=== PATIENT | female | born 1995 | race Caucasian/White ===

== ENCOUNTER 2017-06-27 09:44 | Emergency (ER) | payer OTHER ==
[2017-06-27] MEDS: SOD CHLORIDE 0.9% 500 ML IV (10:29)
[2017-06-27 10:54] LABS: ADD MAN DIFF? NO
[2017-06-27 11:03] LABS: WHITE BLOOD COUNT 11.8 10^3/ul (4.8-10.8)
[2017-06-27 11:03] LABS: BASOPHIL # 0.1 10^3/ul (0.0-0.1); BASOPHILS % 0.7 % (0.0-2.0); EOSINOPHILS # 0.3 10^3/ul (0.0-0.5); EOSINOPHILS % 2.8 % (0.0-7.0); LYMPHOCYTES # 2.3 10^3/ul (0.8-2.9); LYMPHOCYTES % 19.3 % (15.0-51.0); MEAN CORPUSCULAR HEMOGLOBIN 30.9 pg (29.0-33.0); MEAN CORPUSCULAR HGB CONC 35.3 g/dl (32.0-37.0); MEAN CORPUSCULAR VOLUME 87.6 fl (82.0-101.0); MEAN PLATELET VOLUME 11.2 fl (7.4-10.4); MONOCYTE # 0.9 10^3/ul (0.3-0.9); MONOCYTES % 7.3 % (0.0-11.0); NEUTROPHIL # 8.2 10^3/ul (1.6-7.5); NEUTROPHILS % 69.5 % (39.0-77.0); PLATELET COUNT 224 10^3/UL (140-415); RED BLOOD COUNT 3.88 10^6/ul (4.20-5.40); RED CELL DISTRIBUTION WIDTH 14.5 % (11.5-14.5)
[2017-06-27 11:08] LABS: ADD UMIC YES; UR ASCORBIC ACID 20 mg/dL (NEGATIVE); UR BILIRUBIN (Dip) NEGATIVE (NEGATIVE); UR BLOOD (Dip) NEGATIVE (NEGATIVE); UR CLARITY CLEAR (CLEAR); UR COLOR YELLOW (YELLOW); UR GLUCOSE (Dip) NEGATIVE (NEGATIVE); UR KETONES (Dip) NEGATIVE (NEGATIVE); UR LEUKOCYTE ESTERASE (Dip) 1+ Leu/ul (NEGATIVE); UR NITRITE (Dip) NEGATIVE (NEGATIVE); UR RBC 0 /HPF (0-5); UR SPECIFIC GRAVITY (Dip) 1.013 (1.003-1.030); UR SQUAMOUS EPITHELIAL CELL FEW /HPF (FEW); UR TOTAL PROTEIN (Dip) NEGATIVE (NEGATIVE); UR UROBILINOGEN (Dip) NEGATIVE (NEGATIVE); UR WBC 5 /HPF (0-5)
[2017-06-27 11:14] LABS: ANION GAP 16 (8-16); BLOOD UREA NITROGEN 7 mg/dl (7-20); CALCIUM 9.3 mg/dl (8.4-10.2); CARBON DIOXIDE 22 mmol/L (21-31); CHLORIDE 109 mmol/L (97-110); CREATININE 0.44 mg/dl (0.44-1.00); GLUCOSE 80 mg/dl (70-220); POTASSIUM 3.8 mmol/L (3.5-5.1); SODIUM 143 mmol/L (135-144)
== END 2017-06-27 12:22 | disposition home or self-care (01) ==
LOC: FTE 09:44
DX: O23.42 Unspecified infection of urinary tract in pregnancy, second trimester (principal); R10.2 Pelvic and perineal pain; Z3A.21 21 weeks gestation of pregnancy
CPT/HCPCS: 36415; 76805; 80048; 81001; 84702; 85025; 99285-25

== ENCOUNTER 2017-10-02 14:00 | Inpatient (IN) | payer OTHER ==
[2017-10-02 14:39] LABS: ADD UMIC NO; UR ASCORBIC ACID 40 mg/dL (NEGATIVE); UR BILIRUBIN (Dip) NEGATIVE (NEGATIVE); UR BLOOD (Dip) NEGATIVE (NEGATIVE); UR CLARITY CLEAR (CLEAR); UR COLOR YELLOW (YELLOW); UR GLUCOSE (Dip) NEGATIVE (NEGATIVE); UR KETONES (Dip) NEGATIVE (NEGATIVE); UR LEUKOCYTE ESTERASE (Dip) NEGATIVE Leu/ul (NEGATIVE); UR NITRITE (Dip) NEGATIVE (NEGATIVE); UR SPECIFIC GRAVITY (Dip) 1.023 (1.003-1.030); UR TOTAL PROTEIN (Dip) NEGATIVE (NEGATIVE); UR UROBILINOGEN (Dip) NEGATIVE (NEGATIVE)
[2017-10-02] MEDS: LACTATED RINGER'S 1,000 ML IV (18:58)
[2017-10-02 19:15] LABS: ADD MAN DIFF? NO
[2017-10-02 19:18] LABS: BASOPHIL # 0.1 10^3/ul (0.0-0.1); BASOPHILS % 0.6 % (0.0-2.0); EOSINOPHILS # 0.4 10^3/ul (0.0-0.5); EOSINOPHILS % 2.4 % (0.0-7.0); HEMATOCRIT 36.9 % (37.0-47.0); HEMOGLOBIN 12.6 g/dl (12.0-16.0); LYMPHOCYTES # 2.6 10^3/ul (0.8-2.9); LYMPHOCYTES % 15.9 % (15.0-51.0); MEAN CORPUSCULAR HEMOGLOBIN 31.5 pg (29.0-33.0); MEAN CORPUSCULAR HGB CONC 34.1 g/dl (32.0-37.0); MEAN CORPUSCULAR VOLUME 92.3 fl (82.0-101.0); MONOCYTE # 1.1 10^3/ul (0.3-0.9); MONOCYTES % 6.6 % (0.0-11.0); NEUTROPHIL # 11.7 10^3/ul (1.6-7.5); NEUTROPHILS % 72.7 % (39.0-77.0); PLATELET COUNT 224 10^3/UL (140-415); RED CELL DISTRIBUTION WIDTH 13.2 % (11.5-14.5)
[2017-10-02 19:18] LABS: WHITE BLOOD COUNT 16.1 10^3/ul (4.8-10.8)
[2017-10-02 19:40] LABS: ALANINE AMINOTRANSFERASE 21 IU/L (13-69); ALBUMIN 3.8 g/dl (3.3-4.9); ALBUMIN/GLOBULIN RATIO 1.05; ALKALINE PHOSPHATASE 223 IU/L (42-121); ANION GAP 12 (8-16); ASPARTATE AMINO TRANSFERASE 23 IU/L (15-46); BILIRUBIN,INDIRECT 0.2 mg/dl (0-1.1); BILIRUBIN,TOTAL 0.2 mg/dl (0.2-1.3); BLOOD UREA NITROGEN 8 mg/dl (7-20); CARBON DIOXIDE 20 mmol/L (21-31); CHLORIDE 112 mmol/L (97-110); CREATININE 0.49 mg/dl (0.44-1.00); GLUCOSE 78 mg/dl (70-220); POTASSIUM 3.7 mmol/L (3.5-5.1); SODIUM 140 mmol/L (135-144); TOTAL PROTEIN 7.4 g/dl (6.1-8.1)
[2017-10-02] MEDS: BETAMET NA PHOS/AC(6 MG/ML) 5ML INJ IM (19:48)
[2017-10-02 19:56] LABS: INR 0.91; PROTIME 12.3 Sec (11.9-14.9)
[2017-10-02 19:57] LABS: PARTIAL THROMBOPLASTIN TIME 25.3 Sec (25.0-35.0)
[2017-10-02] MEDS: MAGNESIUM SULFATE 4 GM/100 ML 100 ML IV (20:20)
[2017-10-02] MEDS: MAGNESIUM SULFATE 20 GM/500 ML 500 ML IV ×2 (20:20→20:56)
[2017-10-02 21:01] LABS: RAPID PLASMA REAGIN NONREACTIVE (NR)
[2017-10-03 01:03] LABS: MAGNESIUM 4.6 mg/dl (1.7-2.5)
[2017-10-03] MEDS ORDERED: ACETAMINOPHEN 325 MG TAB PO (02:30)
[2017-10-03] MEDS: LACTATED RINGER'S 1,000 ML IV ×3 (05:03→14:05)
[2017-10-03] MEDS: MAGNESIUM SULFATE 20 GM/500 ML 500 ML IV ×2 (05:10→14:08)
[2017-10-03 07:19] LABS: MAGNESIUM 5.3 mg/dl (1.7-2.5)
[2017-10-03 12:51] LABS: MAGNESIUM 5.6 mg/dl (1.7-2.5)
[2017-10-03 18:57] LABS: MAGNESIUM 5.7 mg/dl (1.7-2.5)
[2017-10-03] MEDS: BETAMET NA PHOS/AC(6 MG/ML) 5ML INJ IM (20:13)
[2017-10-04] MEDS: MAGNESIUM SULFATE 20 GM/500 ML 500 ML IV ×2 (00:40→11:13)
[2017-10-04 00:59] LABS: MAGNESIUM 5.5 mg/dl (1.7-2.5)
[2017-10-04] MEDS: LACTATED RINGER'S 1,000 ML IV ×2 (05:16→18:50)
[2017-10-04 07:32] LABS: MAGNESIUM 6.2 mg/dl (1.7-2.5)
[2017-10-04] MEDS ORDERED: NIFEdipine 10 MG CAP PO (18:00)
[2017-10-04] MEDS: NIFEdipine 10 MG CAP PO (20:07)
[2017-10-05] MEDS: NIFEdipine 10 MG CAP PO ×3 (00:12→11:51)
[2017-10-05] MEDS: LACTATED RINGER'S 1,000 ML IV (15:23)
== END 2017-10-05 16:40 | disposition home or self-care (01) | DRG 778 ==
LOC: OBT 14:00 → PP1 10-04 16:11 → L-D 14:00 → OBT 18:10 → L-D 18:10
DX: O60.03 Preterm labor without delivery, third trimester (principal); Z3A.36 36 weeks gestation of pregnancy
CPT/HCPCS: 76818; 80053; 81003; 83735; 85025; 85384; 85610; 85730; 86592; 87086

== ENCOUNTER 2017-10-14 22:37 | Inpatient (IN) | payer OTHER ==
[2017-10-14] MEDS ORDERED: LACTATED RINGER'S 1,000 ML IV (22:55)
[2017-10-14] MEDS ORDERED: CARBOPROST 250 MCG INJ IM (23:00)
[2017-10-14] MEDS ORDERED: OXYTOCIN 30 UNITS/LR 500 ML IV (23:00)
[2017-10-14] MEDS: LACTATED RINGER'S 1,000 ML IV* (23:20)
[2017-10-14] MEDS: AMPICILLIN 2 GM/NS (PMX) 100 ML IV (23:44)
[2017-10-15] MEDS: BUTORPHANOL 2 MG INJ IV (00:11)
[2017-10-15] MEDS ORDERED: BUTORPHANOL 2 MG INJ (00:11)
[2017-10-15 01:18] LABS: ADD MAN DIFF? NO
[2017-10-15 01:21] LABS: WHITE BLOOD COUNT 17.6 10^3/ul (4.8-10.8)
[2017-10-15 01:21] LABS: ABNORMAL IP MESSAGE 1; BASOPHIL # 0.1 10^3/ul (0.0-0.1); BASOPHILS % 0.6 % (0.0-2.0); EOSINOPHILS # 0.3 10^3/ul (0.0-0.5); EOSINOPHILS % 1.8 % (0.0-7.0); HEMATOCRIT 37.7 % (37.0-47.0); HEMOGLOBIN 12.3 g/dl (12.0-16.0); LYMPHOCYTES # 2.6 10^3/ul (0.8-2.9); LYMPHOCYTES % 14.8 % (15.0-51.0); MEAN CORPUSCULAR HGB CONC 32.6 g/dl (32.0-37.0); MEAN PLATELET VOLUME 12.6 fl (7.4-10.4); MONOCYTE # 1.6 10^3/ul (0.3-0.9); NEUTROPHIL # 12.5 10^3/ul (1.6-7.5); NEUTROPHILS % 70.9 % (39.0-77.0); NUCLEATED RED BLOOD CELLS% 0.1 /100WBC (0.0-0.0); PLATELET COUNT 239 10^3/UL (140-415); RED CELL DISTRIBUTION WIDTH 13.1 % (11.5-14.5)
[2017-10-15] MEDS: OXYTOCIN 30 UNITS/LR 500 ML IV ×3 (01:21→06:02)
[2017-10-15] MEDS: MISOPROSTOL 200 MCG TAB PR (01:21)
[2017-10-15] MEDS: METHYLERGONOVINE 0.2 MG INJ IM (01:22)
[2017-10-15] MEDS: LIDOCAINE 1% (MPF) 30 ML INJ INJ (01:24)
[2017-10-15 01:29] LABS: POSITIVE DIFF @See below
[2017-10-15 01:41] LABS: INR 0.82; PROTIME 11.4 Sec (11.9-14.9); PT RATIO 0.9
[2017-10-15] MEDS: IBUPROFEN 600 MG TAB PO ×4 (01:44→17:18)
[2017-10-15 02:10] LABS: HEPATITIS B SURFACE ANTIGEN NEGATIVE (NEGATIVE)
[2017-10-15] MEDS ORDERED: AMPICILLIN 1 GM/NS (PMX) 50 ML IV (03:00)
[2017-10-15] MEDS ORDERED: OXYTOCIN 30 UNITS/LR 500 ML IV (04:30)
[2017-10-15] MEDS ORDERED: DIBUCAINE 1% 30 GM OINT PR (04:30)
[2017-10-15] MEDS ORDERED: DIPHENHYDRAMINE 50 MG INJ IV (04:30)
[2017-10-15] MEDS ORDERED: MISOPROSTOL 200 MCG TAB PR (04:30)
[2017-10-15] MEDS ORDERED: ZOLPIDEM 5 MG TAB PO (04:30)
[2017-10-15] MEDS ORDERED: ONDANSETRON 4 MG INJ IV (04:30)
[2017-10-15] MEDS ORDERED: CARBOPROST 250 MCG INJ IM (04:30)
[2017-10-15] MEDS ORDERED: METHYLERGONOVINE 0.2 MG INJ IM (04:30)
[2017-10-15] MEDS ORDERED: ACETAMINOPHEN 325 MG TAB PO (04:30)
[2017-10-15] MEDS: DEXTROSE 5%-LR 1,000 ML IV ×3 (05:31→20:03)
[2017-10-15] MEDS: LACTATED RINGER'S 1,000 ML IV* ×3 (06:03→20:03)
[2017-10-15] MEDS: BENZOCAINE 20% 56 ML SPRAY TOP (11:50)
[2017-10-15] MEDS: WITCH HAZEL/GLYCERIN PAD PR (11:50)
[2017-10-15] MEDS: LANOLIN 7 GM TUBE TOP (11:57)
[2017-10-15 14:58] LABS: RAPID PLASMA REAGIN NONREACTIVE (NR)
[2017-10-16] MEDS: IBUPROFEN 600 MG TAB PO ×5 (00:29→23:27)
[2017-10-16] MEDS: LACTATED RINGER'S 1,000 ML IV* ×3 (04:03→20:03)
[2017-10-16] MEDS: DEXTROSE 5%-LR 1,000 ML IV ×3 (04:03→20:03)
[2017-10-16 07:15] LABS: ADD MAN DIFF? NO
[2017-10-16 07:20] LABS: WHITE BLOOD COUNT 16.8 10^3/ul (4.8-10.8)
[2017-10-16 07:20] LABS: BASOPHIL # 0.1 10^3/ul (0.0-0.1); BASOPHILS % 0.7 % (0.0-2.0); EOSINOPHILS # 0.4 10^3/ul (0.0-0.5); EOSINOPHILS % 2.1 % (0.0-7.0); HEMATOCRIT 30.7 % (37.0-47.0); HEMOGLOBIN 10.3 g/dl (12.0-16.0); LYMPHOCYTES # 3.2 10^3/ul (0.8-2.9); LYMPHOCYTES % 19.1 % (15.0-51.0); MEAN CORPUSCULAR HEMOGLOBIN 31.7 pg (29.0-33.0); MEAN CORPUSCULAR HGB CONC 33.6 g/dl (32.0-37.0); MEAN CORPUSCULAR VOLUME 94.5 fl (82.0-101.0); MEAN PLATELET VOLUME 12.4 fl (7.4-10.4); MONOCYTE # 1.3 10^3/ul (0.3-0.9); MONOCYTES % 7.9 % (0.0-11.0); NEUTROPHIL # 11.3 10^3/ul (1.6-7.5); NEUTROPHILS % 66.8 % (39.0-77.0); PLATELET COUNT 203 10^3/UL (140-415); RED BLOOD COUNT 3.25 10^6/ul (4.20-5.40); RED CELL DISTRIBUTION WIDTH 13.2 % (11.5-14.5)
[2017-10-16] MEDS: OXYCODONE/ASPIRIN (4.88/325) TAB PO (20:33)
[2017-10-16] MEDS: SENNA/DOCUSATE NA (8.6MG/50MG) TAB PO (23:55)
[2017-10-17] MEDS: IBUPROFEN 600 MG TAB PO ×3 (06:13→17:19)
[2017-10-17 08:13] LABS: ADD MAN DIFF? NO
[2017-10-17 08:18] LABS: BASOPHIL # 0.1 10^3/ul (0.0-0.1); BASOPHILS % 0.8 % (0.0-2.0); EOSINOPHILS # 0.4 10^3/ul (0.0-0.5); EOSINOPHILS % 3.2 % (0.0-7.0); HEMATOCRIT 32.4 % (37.0-47.0); HEMOGLOBIN 10.5 g/dl (12.0-16.0); LYMPHOCYTES # 2.9 10^3/ul (0.8-2.9); LYMPHOCYTES % 21.5 % (15.0-51.0); MEAN CORPUSCULAR HEMOGLOBIN 31.1 pg (29.0-33.0); MEAN CORPUSCULAR HGB CONC 32.4 g/dl (32.0-37.0); MEAN CORPUSCULAR VOLUME 95.9 fl (82.0-101.0); MEAN PLATELET VOLUME 11.5 fl (7.4-10.4); MONOCYTES % 7.3 % (0.0-11.0); NEUTROPHIL # 8.6 10^3/ul (1.6-7.5); NEUTROPHILS % 63.4 % (39.0-77.0); PLATELET COUNT 230 10^3/UL (140-415); RED BLOOD COUNT 3.38 10^6/ul (4.20-5.40); RED CELL DISTRIBUTION WIDTH 13.4 % (11.5-14.5)
[2017-10-17 08:18] LABS: WHITE BLOOD COUNT 13.6 10^3/ul (4.8-10.8)
[2017-10-17] MEDS: MEASLES,MUMPS,RUBELLA VACCINE INJ SC* (09:10)
[2017-10-17] MEDS: DIPHTH/TET/ACEL PERTUSS (ADULT) 0.5 ML VIAL IM* (17:19)
[2017-10-17] MEDS: OXYCODONE/ASPIRIN (4.88/325) TAB PO (18:40)
[2017-10-17] MEDS: LANOLIN 7 GM TUBE TOP (20:26)
[2017-10-17] MEDS: SENNA/DOCUSATE NA (8.6MG/50MG) TAB PO (20:26)
== END 2017-10-17 22:40 | disposition home or self-care (01) | DRG 775 ==
LOC: OBT 22:37 → L-D 22:38 → OBT 22:50 → PP1 10-15 15:23 → L-D 22:50
PROVIDERS: Obstetrics & Gynecology
PROC: 10E0XZZ Delivery of Products of Conception, External Approach (ICD-10-PCS; principal; 2017-10-15)
PROC: 0UQMXZZ Repair Vulva, External Approach (ICD-10-PCS; 2017-10-15)
PROC: 3E033VJ Introduction of Other Hormone into Peripheral Vein, Percutaneous Approach (ICD-10-PCS; 2017-10-15)
DX: O60.14X0 Preterm labor third trimester with preterm delivery third trimester, not applicable or unspecified (principal); O71.4 Obstetric high vaginal laceration alone; O70.0 First degree perineal laceration during delivery; Z3A.36 36 weeks gestation of pregnancy; Z37.0 Single live birth
CPT/HCPCS: 85025; 85610; 85730; 86592; 86850; 86900; 86901; 87340

== ENCOUNTER 2017-12-05 10:33 | Emergency (ER) | payer OTHER ==
[2017-12-05] MEDS: SOD CHLORIDE 0.9% 1,000 ML IV (11:57)
[2017-12-05 12:08] LABS: ADD MAN DIFF? NO
[2017-12-05 12:10] LABS: BASOPHIL # 0.1 10^3/ul (0.0-0.1); BASOPHILS % 0.8 % (0.0-2.0); EOSINOPHILS # 0.7 10^3/ul (0.0-0.5); EOSINOPHILS % 7.8 % (0.0-7.0); HEMATOCRIT 38.5 % (37.0-47.0); HEMOGLOBIN 12.6 g/dl (12.0-16.0); LYMPHOCYTES % 23.1 % (15.0-51.0); MEAN CORPUSCULAR HEMOGLOBIN 29.6 pg (29.0-33.0); MEAN CORPUSCULAR HGB CONC 32.7 g/dl (32.0-37.0); MEAN CORPUSCULAR VOLUME 90.4 fl (82.0-101.0); MEAN PLATELET VOLUME 10.4 fl (7.4-10.4); MONOCYTES % 11.7 % (0.0-11.0); NEUTROPHIL # 4.9 10^3/ul (1.6-7.5); NEUTROPHILS % 56.4 % (39.0-77.0); PLATELET COUNT 282 10^3/UL (140-415); RED BLOOD COUNT 4.26 10^6/ul (4.20-5.40); RED CELL DISTRIBUTION WIDTH 12.5 % (11.5-14.5)
[2017-12-05 12:10] LABS: WHITE BLOOD COUNT 8.6 10^3/ul (4.8-10.8)
[2017-12-05 12:28] LABS: ADD UMIC YES; UR ASCORBIC ACID NEGATIVE (NEGATIVE); UR BACTERIA MODERATE /HPF (NONE SEEN); UR BILIRUBIN (Dip) NEGATIVE (NEGATIVE); UR BLOOD (Dip) 3+ mg/dL (NEGATIVE); UR CLARITY SLIGHTLY CLOUDY (CLEAR); UR COLOR YELLOW (YELLOW); UR GLUCOSE (Dip) NEGATIVE (NEGATIVE); UR KETONES (Dip) NEGATIVE (NEGATIVE); UR LEUKOCYTE ESTERASE (Dip) TRACE Leu/ul (NEGATIVE); UR MUCUS FEW /HPF (NONE SEEN); UR NITRITE (Dip) NEGATIVE (NEGATIVE); UR RBC > 182 /HPF (0-5); UR SPECIFIC GRAVITY (Dip) 1.024 (1.003-1.030); UR SQUAMOUS EPITHELIAL CELL FEW /HPF (FEW); UR TOTAL PROTEIN (Dip) 1+ mg/dl (NEGATIVE); UR UROBILINOGEN (Dip) NEGATIVE (NEGATIVE); UR WBC 31 /HPF (0-5)
[2017-12-05 12:45] LABS: ALANINE AMINOTRANSFERASE 43 IU/L (13-69); ALBUMIN 4.2 g/dl (3.3-4.9); ALBUMIN/GLOBULIN RATIO 0.91; ALKALINE PHOSPHATASE 217 IU/L (42-121); ANION GAP 13 (8-16); ASPARTATE AMINO TRANSFERASE 46 IU/L (15-46); BILIRUBIN,INDIRECT 0.3 mg/dl (0-1.1); BILIRUBIN,TOTAL 0.3 mg/dl (0.2-1.3); BLOOD UREA NITROGEN 12 mg/dl (7-20); CALCIUM 9.2 mg/dl (8.4-10.2); CARBON DIOXIDE 27 mmol/L (21-31); CHLORIDE 107 mmol/L (97-110); CREATININE 0.61 mg/dl (0.44-1.00); GLUCOSE 90 mg/dl (70-220); LIPASE 144 U/L (23-300); POTASSIUM 4.2 mmol/L (3.5-5.1); SODIUM 143 mmol/L (135-144); TOTAL PROTEIN 8.8 g/dl (6.1-8.1)
== END 2017-12-05 14:28 | disposition home or self-care (01) ==
LOC: FTE 10:33
DX: N39.0 Urinary tract infection, site not specified (principal); N93.9 Abnormal uterine and vaginal bleeding, unspecified
CPT/HCPCS: 36415; 76830; 76856; 80053; 81001; 83690; 84702; 85025; 99285-25

== ENCOUNTER 2018-11-18 18:08 | Emergency (ER) | payer OTHER | END 2018-11-18 21:19 | disposition home or self-care (01) | LOC: FTE 18:08 | DX: S80.861A Insect bite (nonvenomous), right lower leg, initial encounter (principal); L03.115 Cellulitis of right lower limb; W57.XXXA Bitten or stung by nonvenomous insect and other nonvenomous arthropods, initial encounter; Y92.9 Unspecified place or not applicable | CPT/HCPCS: 81025; 99283 ==